=== PATIENT | female | born 1965 | race Two or more races ===

== ENCOUNTER 2018-07-10 17:07 | Emergency (ER) | payer SELFPAY ==
[2018-07-10] MEDS ORDERED: Naloxone 0.4 mg/ml Inj (Adult) IVP ONE (18:03)
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
[2018-07-10] MEDS ORDERED: Naloxone 0.4 mg/ml Inj (Adult) ONE (18:33)
[2018-07-10 19:10] VITALS: BP 130/78; PULSE 78; RESP 19; TEMP 97.6
[2018-07-10 19:15] VITALS: O2SAT 100
== END 2018-07-10 19:10 | disposition home or self-care (01) ==
LOC: H.ER 17:07
DX: F11.10 Opioid abuse, uncomplicated (principal)
CPT/HCPCS: 96374; 99282; J2310